=== PATIENT | male | born 1950 | race Hispanic/Latino ===

== ENCOUNTER 2020-03-03 19:13 | Emergency (ER) | payer BC ==
[~2020-03-03] VITALS: Ht 162.6 cm; Wt 74.8 kg
[2020-03-03] MEDS ORDERED: MECLIZINE HCL 12.5 MG TAB PO ONE (20:15)
[2020-03-03] MEDS ORDERED: MECLIZINE HCL 12.5 MG TAB ONE (20:31)
[2020-03-03] MEDS ORDERED: MECLIZINE HCL25 MG PO (21:57)
== END 2020-03-03 22:14 | disposition home or self-care (01) ==
LOC: FSED 20:00
DX: R42 Dizziness and giddiness (principal); E11.65 Type 2 diabetes mellitus with hyperglycemia; E78.5 Hyperlipidemia, unspecified; K21.9 Gastro-esophageal reflux disease without esophagitis
CPT/HCPCS: 70450; 80053; 82553; 84484; 85025; 93005; 99284; J8597

== ENCOUNTER 2022-07-30 18:11 | Emergency (ER) | payer BC, MEDICARE ==
[~2022-07-30] VITALS: Ht 162.6 cm; Wt 74.4 kg
[~2022-07-30 18:11] MED LIST: MECLIZINE HCL25 MG PO
[2022-07-30] MEDS ORDERED: VIAGRA25 MG (18:30)
[2022-07-30] MEDS ORDERED: SIMVASTATIN20 MG PO (18:30)
[2022-07-30] MEDS ORDERED: CEFTRIAXONE 1 GM VIAL IM ONE (18:30)
[2022-07-30] MEDS ORDERED: OMEPRAZOLE40 MG PO (18:30)
[2022-07-30] MEDS ORDERED: ASPIRIN EC81 MG PO (18:30)
[2022-07-30] MEDS ORDERED: METFORMIN HCL500 MG PO (18:30)
[2022-07-30] MEDS ORDERED: CEFTRIAXONE 1 GM VIAL ONE (18:38)
[2022-07-30] MEDS ORDERED: LIDOCAINE HCL 1% LOCAL INJ 20 ML VIAL ONE (18:38)
[2022-07-30] MEDS ORDERED: CEFDINIR300 MG PO (18:39)
== END 2022-07-30 18:42 | disposition home or self-care (01) ==
LOC: FSED 18:15
DX: J02.9 Acute pharyngitis, unspecified (principal); E11.9 Type 2 diabetes mellitus without complications; E78.5 Hyperlipidemia, unspecified; K21.9 Gastro-esophageal reflux disease without esophagitis
CPT/HCPCS: 83518; 96372; 99283; J0696; J2001